=== PATIENT | female | born 1950 | race Caucasian/White ===

== ENCOUNTER 2017-06-30 08:05 | Emergency (ER) | payer OTHER, MEDICAID ==
[2017-06-30 08:10] VITALS: BP 145/66; BMI 24.8
[2017-06-30] MEDS ORDERED: PHENERGAN INJ 25 MG IV ONE (08:48)
[2017-06-30] MEDS ORDERED: TORADOL 30 MG VIAL IVP ONE (08:48)
--- NOTE | 2017-06-30 08:51 | DR.GENAD ---
HPI - PCP Primary Care Physician: [facility] - Complaint/Symptoms Chief Complaint Doctors Comments: Patient presented with complaint of low back pain with pain radiating down left leg. She has been treated by the IN for back pain. Chief Complaint:: PATIENT STATED THAT SHE HAS A VERY BACK PAIN. IT STARTED ON HER LEFT SIDE ON THE BUTTOCKS AND WENT ALL THE WAY DOWN TO HER FOOT. THEN THE PAIN RADIATES ACROSS THE LOWER PART OF HER BACK. - Source History Provided: Patient - Mode of Arrival Mode of Arrival: Ambulatory - Timing Onset of Chief Complaint: 06/28/17 PMH - PMH Past Medical History: Yes Past Medical History: Hypertension Past Medical History Comment: CAN'T SLEEP Past Surgical History: Yes Surgical History: Cholecystectomy, Hysterectomy - Family History History of Family Medical Conditions: No - Social History Does patient currently use any type of tobacco product: Yes Have you used tobacco products in the last 12 months: Yes Type of Tobacco Use: Cigarettes Does any household member use tobacco: No Alcohol Use: None Do you use any recreational Drugs:: No Lives With: Family Lives Where: Home - infectious screening In the last 2 months have you had wt loss of >10#?: NO Have you had fever, night sweats or hemotysis?: No Have you traveled outside the country in the last 6 months?: No Isolation: Standard ROS - Review of Systems Constitutional: No Symptoms Reported Eyes: No Symptoms Reported ENTM: No Symptoms Reported Respiratoy: No Symptoms Reported Cardiovascular: No Symptoms Reported Gastrointestinal/Abdominal: No Symptoms Reported Genitourinary: No Symptoms Reported Neurological: No Symptoms Reported Musculoskeletal: No Symptoms Reported PE - Vital Signs Vitals: Pulse Rate 106 Respiratory Rate 20 Blood Pressure 145/66 O2 Sat by Pulse Oximetry 98 - General Limitations: No Limitations General Appearance: Alert, In No Apparent Distress - Head Head Exam: Normal Inspection, Atraumatic - Eyes Eye exam: Normal Appearance, PERRL, EOMI - ENT ENT Exam: Normal Exam External Ear Exam: Normal External Inspection TM/Canal Exam: Bilateral Normal Nose Exam: Normal Nose Exam Mouth Exam: Normal Inspection Throat Exam: Normal Inspection - Neck Neck Exam: Normal Inspection, Full ROM - Chest Chest Inspection: Normal Inspection - Respiratory Respiratory Exam: Normal Lung Sounds Bilat MDM - Additional Information Findings: Unexpectant findings of nodular densities lung bases. CT/cont recommended Course - Reevaluation 1st: Improved - Education/Counseling Education/Counseling: Patient, Family Educated On: Treatment, Diagnosis, Prognosis, Needs for Follow Up ROR - Labs Reviewed Result Diagrams: 06/30/17 09:33 06/30/17 09:33 Laboratory: WBC 8.5 X10^3/uL (3.6-10.0) 06/30/17 09:33 RBC 5.02 X10^6/uL (3.5-5.4) 06/30/17 09:33 Hgb 13.4 g/dL (12.0-16.0) 06/30/17 09:33 Hct 39.8 % (36.0-47.0) 06/30/17 09:33 MCV 79.4 fL (80.0-100.0) L 06/30/17 09:33 MCH 26.6 pg (27.0-34.0) L 06/30/17 09:33 MCHC 33.5 g/dL (33.0-35.0) 06/30/17 09:33 RDW 14.1 % (11.6-16.5) 06/30/17 09:33 Plt Count 194 X10^3/uL (150.0-450.0) 06/30/17 09:33 MPV 8.7 fL (7.4-11.0) 06/30/17 09:33 Neut % 68.3 % (42.0-75.0) 06/30/17 09:33 Lymph % 21.6 % (21.0-51.0) 06/30/17 09:33 Wheeler % 6.1 % (0.0-13.0) 06/30/17 09:33 Eos % 3.0 % (0.9-2.9) H 06/30/17 09:33 Baso % 1.0 % (0.2-1.0) 06/30/17 09:33 Neut # 5.8 x10^3/uL (2.2-4.8) H 06/30/17 09:33 Lymph # 1.8 X10^3/uL (1.3-2.9) 06/30/17 09:33 Wheeler # 0.5 x10^3/uL (0.3-0.8) 06/30/17 09:33 Eos # 0.3 x10^3/uL (0.0-0.2) H 06/30/17 09:33 Baso # 0.1 X10^3/uL (0.0-0.1) 06/30/17 09:33 Absolute Nucleated RBC 0.0 /100WBC 06/30/17 09:33 Sodium 136 mmol/L (136-145) 06/30/17 09:33 Corrected Sodium TNP 06/30/17 09:33 Potassium 3.9 mmol/L (3.5-5.1) 06/30/17 09:33 Chloride 100 mmol/L (98-107) 06/30/17 09:33 Carbon Dioxide 28.5 mmol/L (21-32) 06/30/17 09:33 BUN 8 mg/dL (7-18) 06/30/17 09:33 Creatinine 0.61 mg/dL (0.55-1.02) 06/30/17 09:33 Est GFR (MDRD) Af Amer > 60 (>60) 06/30/17 09:33 Est GFR (MDRD) Non-Af > 60 (>60) 06/30/17 09:33 Glucose 95 mg/dL (65-99) 06/30/17 09:33 Calcium 9.2 mg/dL (8.5-10.1) 06/30/17 09:33 - XRAY XRAY Interpreted by: Radiologist (Lumbar spine:The most caudal fully-formed intervertebral disc will be labeled L5-S1 for the purpose of this dictation. 3 views of the lumbar spine were obtained. There are 5 nonrib-bearing lumbar type vertebral bodies. Straightening of the lumbar lordosis as imaged. Vertebral body heights are overall preserved with significant loss of disc space L4-S1 with endplate sclerosis. Ther is no sacroiliac diastasis. Indicdental note is made of multiple sub cm nodular densities in the lung bases.. Impression:Multilevel degenerative change.Multiple subcentimeter nodular densities in the lung bases. reommend evaluation with PA and lateral views of the chest and/or CT throax with contrast. CT Chest with/There is a 3.6x3.7x3.9 cm mass in the superior segment of the left lower lobe. The mass abuts the medial pleura and is suspicious for primary lung neoplasm. No pleural effusions are identified. No chest wall or axillary abnormality is identified..those portions of the upper abdominal organs visualized were within normal limits. There does appear to be some nodularity in both adrenal glands. Metastatic disease cannot be excluded. PET-CT would be of further diagnostic value. Examination of the lung petit demonstrate too many to count noncalcified parenchymal nodulse involving all lung petit but with a lower lobe predominence. 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
[2017-06-30] MEDS ORDERED: PHENERGAN INJ 25 MG ONE (09:06)
[2017-06-30] MEDS ORDERED: TORADOL 30 MG VIAL ONE (09:06)
[2017-06-30] MEDS ORDERED: DEMEROL INJ IVP ONE (09:16)
--- NOTE | 2017-06-30 09:17 | RAD ---
LUMBAR SPINE RADIOGRAPHS CLINICAL HISTORY: 67-year-old female with low back pain and no history of trauma. COMPARISON: None. FINDINGS: The most caudad, fully-formed intervertebral disc will be labeled L5-S1 for the purpose of this dictation. 3 views of the lumbar spine were obtained. There are 5 nonrib-bearing lumbar type raymon tebral bodies. Straightening of the lumbar lordosis as imaged. Vertebral body heights are overall pre served with significant loss of disc space L4-S1 with endplate sclerosis. There is no sacroiliac d iastasis. Incidental note is made of multiple sub cm nodular densities in the lung bases. IMPRESSION: 1. No compression fracture deformity or malalignment on screening lumbar spine radiographs. 2. Multilevel degenerative change, consider MR lumbar spine for radicular symptoms. 3. Multiple subcentimeter nodular densities in the lung bases, recommend evaluation with PA and later al views of the chest and/or CT thorax with contrast. Reported By:
[2017-06-30 09:42] LABS: BASOPHILS # (AUTO) 0.1 X10^3/uL (0.0-0.1); EOSINOPHILS # (AUTO) 0.3 x10^3/uL (0.0-0.2); HEMATOCRIT 39.8 % (36.0-47.0); HEMOGLOBIN 13.4 g/dL (12.0-16.0); LYMPHOCYTES # (AUTO) 1.8 X10^3/uL (1.3-2.9); LYMPHOCYTES % (AUTO) 21.6 % (21.0-51.0); MEAN CORPUSCULAR HEMOGLOBIN 26.6 pg (27.0-34.0); MEAN CORPUSCULAR HGB CONC 33.5 g/dL (33.0-35.0); MEAN CORPUSCULAR VOLUME 79.4 fL (80.0-100.0); MEAN PLATELET VOLUME 8.7 fL (7.4-11.0); MONOCYTES # (AUTO) 0.5 x10^3/uL (0.3-0.8); MONOCYTES % (AUTO) 6.1 % (0.0-13.0); NEUTROPHILS # (AUTO) 5.8 x10^3/uL (2.2-4.8); NEUTROPHILS % (AUTO) 68.3 % (42.0-75.0); PLATELET COUNT 194 X10^3/uL (150.0-450.0); RED BLOOD COUNT 5.02 X10^6/uL (3.5-5.4); RED CELL DISTRIBUTION WIDTH 14.1 % (11.6-16.5); WHITE BLOOD COUNT 8.5 X10^3/uL (3.6-10.0)
[2017-06-30 09:45] LABS: BLOOD UREA NITROGEN 8 mg/dL (7-18); CALCIUM 9.2 mg/dL (8.5-10.1); CARBON DIOXIDE 28.5 mmol/L (21-32); CHLORIDE 100 mmol/L (98-107); CREATININE 0.61 mg/dL (0.55-1.02); SODIUM 136 mmol/L (136-145); eGFR BLACK RACES > 60 (>60); eGFR NON BLACK RACES > 60 (>60)
[2017-06-30] MEDS ORDERED: DEMEROL INJ ONE (09:53)
--- NOTE | 2017-06-30 11:10 | CT ---
HISTORY: Lung nodules Study: CT chest with contrast Comparison: Lumbar spine radiographs 06/30/2017 Technique: Axial post-contrast images with coronal and sagittal reformats. Dose reduction procedures were used with mA/kv adjusted for body size. Findings: Examination of the mediastinum demonstrated a 1 cm right thyroid nodule which could be better evaluat ed sonographically. No mediastinal masses, enlarged mediastinal adenopathy or right hilar adenopathy is identified. Left hilar lymphadenopathy is present in the form of a 1.9 by 2 cm node demonstrating some central lucency suggestive of necrosis. There is a 3.6 by 3.7 by 3.9 cm mass in the superior seg ment of the left lower lobe. The mass abuts the medial pleura and is suspicious for primary lung neop lasm. No pleural effusions are identified. No chest wall or axillary abnormality is identified. Bb th ose portions of the upper abdominal organs visualized were within normal limits. There does appear to be some nodularity in both adrenal glands. Metastatic disease cannot be excluded. PET-CT would be of further diagnostic value. Examination of the lung petit demonstrate too many to count noncalcified parenchymal nodules involving all lung petit but with a lower lobe predominance. They range in size from sub 0.5 cm to 2 cm and likely represent diffuse pulmonary metastatic disease. IMPRESSION: 3.6 x 3.7 x 3.9 cm mass in the superior segment of the left lower lobe abutting the medial pleura and likely representing primary lung neoplasm. Diffuse bilateral multiple too many to count noncalcified parenchymal lung nodules ranging in size fr om sub 0.5 cm to 2 cm most likely representing pulmonary metastatic disease Left hilar lymphadenopathy Nodular adrenal glands bilaterally which could represent adenomatous change or metastatic disease. Reported By:
== END 2017-06-30 11:38 | disposition home or self-care (01) ==
LOC: ER 08:25
DX: M47.26 Other spondylosis with radiculopathy, lumbar region (principal); R91.8 Other nonspecific abnormal finding of lung field
CPT/HCPCS: 36415; 71260; 72100; 80048; 85025; 96365; 96374; 96375; 99283; A4222; J1885; J2175; J2550